=== PATIENT | male | born 1990 ===

== ENCOUNTER 2016-06-04 06:04 | Day surgery (SDC) | payer SELFPAY ==
[2016-05-31 14:13] VITALS: BMI 23.8
[2016-06-04] MEDS ORDERED: cefTRIAXone (Rocephin) 1 gm Inj ONE (08:04)
[2016-06-04] MEDS ORDERED: Midazolam 2 MG/2 ML VIAL ONE (08:45)
[2016-06-04] MEDS ORDERED: Propofol 10 mg/ml Inj (20 ML) ONE ×2 (08:45→09:21)
[2016-06-04] MEDS ORDERED: Succinylcholine 200 mg/10 ml Inj IV ONE (08:45)
[2016-06-04] MEDS ORDERED: ePHEDrine 50 mg/ml Inj ONE (08:49)
[2016-06-04] MEDS ORDERED: Lactated Ringer's 1,000 ML IV ONE (09:10)
[2016-06-04] MEDS ORDERED: Sevoflurane - Inhalation Anesthetic Liq (250 ml) ONE (09:19)
[2016-06-04] MEDS ORDERED: Lidocaine 4% (Laryng-O-Jet) Kit MM ONE (09:24)
[2016-06-04] MEDS ORDERED: HYDROmorphone 0.5 mg/0.5 ml ISec IVP PRN (10:08)
[2016-06-04] MEDS ORDERED: Lactated Ringer's 1,000 ML IV SCH (10:15)
--- NOTE | 2016-06-04 10:30 | OP ---
PROCEDURE DATE: 06/04/2016 PREOPERATIVE DIAGNOSIS: Urethral stricture. POSTOPERATIVE DIAGNOSIS: Urethral stricture. PROCEDURE PERFORMED: Cystoscopy with internal optical urethrotomy. DESCRIPTION OF OPERATION: The patient was placed on the operating table in dorsal lithotomy position . The area of the groin was draped and prepped in a sterile manner. Using a #17 cystoscope, I enter ed into the bladder atraumatically. At the proximal urethra, there was a complete closure of the ure thra to a pinhole, basically allowing just the entry of a 0.035 sensor wire with no wiggle room. So, once I was able to get the sensor wire in I then exchanged the cystoscope for an optical urethrotome , and cutting on the wire I was able to get through this area of stenosis which was relatively narrow . Once beyond there, then I got to the area of the prostatic urethra and it all appeared to be withi n normal limits. The bladder itself was free of any lesions or trabeculation. Went back to the area that I had opened. There was a little bit of bleeding that I think would be stopped by the catheter . So, with the guidewire always in as a guide, I then over that guidewire placed a #22 Sam[address] catheter which entered easily. At that point then the urine outflow initially bloody but then aurelia ared up immediately. After the catheter was in place, just noted incidental findings of condylomas i n the area of the foreskin and just under the glans penis. There were multiple, probably about 10, s mall in size. I used a cautery with a needle tip, 15 vickers of current, and I cauterized these incide ntal findings of condylomas. Following this, then the patient was taken from the operating room in g ood condition. Randi Chavarria MD cc: 48 TT: 06/04/2016 10:29:43 richar
--- NOTE | 2016-06-04 11:16 | DS ---
The patient was admitted today for elective optical urethrotomy. He underwent the procedure well. P ostoperatively, the patient is stable. He will be going home with a Muhammad to leg bag to create dilat ation of the strictured area. He will be given a prescription for Cipro and Pyridium. I will see th e patient in my office on Saturday for removal of Muhammad catheter. Randi Chavarria MD cc: 48 TT: 06/04/2016 11:15:38 mn
[2016-06-04 11:52] VITALS: O2SAT 98
--- NOTE | 2016-06-04 12:05 | CP.PCM.PN ---
Subjective - Date & Time of Evaluation Date of Evaluation: 06/04/16 Time of Evaluation: 12:02 - Subjective Subjective: Spoke with patient again regarding chipped cosmetic only on left front tooth from bite block up waking up from general anesthesia. Patient understands that this can happen because of the thin onlay on his tooth. Referred patient to Dr. Gaffney at [address] [place] [address] for repair. Patient understands and will call office to set up the appointment. Objective - Vital Signs/Intake and Output Vital Signs (last 24 hours): Temp Pulse Resp BP Pulse Ox 98.7 F 88 20 133/75 98 06/04/16 11:51 06/04/16 11:51 06/04/16 11:51 06/04/16 11:51 06/04/16 11:52 Intake and Output: 06/04/16 06/04/16 06:59 18:59 Intake Total 400 Output Total 800 Balance -400 - Medications Medications: Current Medications Lactated Ringer's (Lactated Ringer's) 1,000 mls @ 125 mls/hr IV .Q8H THAI
[2016-06-04 13:13] VITALS: BP 133/73; PULSE 92; RESP 18; TEMP 98.9
== END 2016-06-04 13:38 | disposition home or self-care (01) ==
LOC: H.OPSURG 06:04
PROVIDERS: ATTEND Urology
DX: N35.9 Urethral stricture, unspecified (principal); G40.909 Epilepsy, unspecified, not intractable, without status epilepticus

== ENCOUNTER 2017-06-03 06:47 | Day surgery (SDC) | payer SELFPAY ==
[2017-05-29 11:35] VITALS: BMI 25.7
[2017-06-03] MEDS ORDERED: Lactated Ringer's 1,000 ML IV ONE (08:20)
[2017-06-03] MEDS ORDERED: Lidocaine 2% Jelly (Uro-Jet) ONE (09:02)
[2017-06-03] MEDS ORDERED: cefTRIAXone (Rocephin) 1 gm Inj ONE (09:03)
[2017-06-03] MEDS ORDERED: Propofol 10 mg/ml Inj (20 ML) ONE (09:03)
[2017-06-03] MEDS ORDERED: Midazolam 2 MG/2 ML VIAL ONE (09:03)
[2017-06-03] MEDS ORDERED: cefTRIAXone (Rocephin) 1 gm Inj IM ONE (09:10)
[2017-06-03] MEDS ORDERED: Lidocaine 2% Jelly (Uro-Jet) TOP ONE (09:10)
[2017-06-03] MEDS ORDERED: Morphine 4 MG/ML VIAL IVP PRN (09:42)
[2017-06-03] MEDS ORDERED: Lactated Ringer's 1,000 ML IV SCH (09:45)
[2017-06-03] MEDS ORDERED: Morphine 4 MG/ML VIAL ONE (09:51)
--- NOTE | 2017-06-03 11:48 | OP ---
PROCEDURE DATE: 06/03/2017 PREOPERATIVE DIAGNOSIS: Urethral stricture. POSTOPERATIVE DIAGNOSIS: Urethral stricture. PROCEDURE PERFORMED: Cystoscopy with an internal optical urethrotomy. DESCRIPTION OF PROCEDURE: The patient was placed in the operating table in dorsal lithotomy position. The area of the groin was draped and prepped in the sterile manner. Using a #21 cystoscope, I entered into the urethra atraumatically. Mid urethral, there was evidence of a significant urethral stricture, took some documenting photographs and then went back with an optical urethrotome to incise the stricture. Once the incision was made, I was able to enter into the bladder then atraumatically. The prostate was not occlusive. The bladder initially appears normal. Then, over a guidewire that was in place, I inserted a #22 Councill catheter. This was in place. Then, urine initially was hematuric, but then cleared rather completely. The patient then was taken from the operating room in good condition. Randi Chavarria MD
[2017-06-03 12:27] VITALS: BP 125/62; PULSE 61; RESP 18; TEMP 98.5; O2SAT 98
== END 2017-06-03 12:35 | disposition home or self-care (01) ==
LOC: H.OPSURG 06:47
PROVIDERS: ATTEND Urology
DX: N35.9 Urethral stricture, unspecified (principal); G40.909 Epilepsy, unspecified, not intractable, without status epilepticus
CPT/HCPCS: 52276; C1769; J0696; J2250; J2270; J2704; J2765; J3010; J7120